=== PATIENT | male | born 2000 | race Caucasian/White ===

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

== ENCOUNTER 2019-06-19 12:06 | Emergency (ER) | payer BC, SELFPAY ==
[2018-11-16 17:16] VITALS: BMI 46.1
[2019-06-19 12:07] VITALS: BP 125/37; PULSE 129; RESP 23; TEMP 37.1; O2SAT 90; BMI 47.3
--- NOTE | 2019-06-19 12:26 | EKG12_ITS ---
Test Reason : Blood Pressure : / mmHG Vent. Rate : 115 BPM Atrial Rate : 115 BPM P-R Int : 140 ms QRS Dur : 092 ms QT Int : 342 ms P-R-T Axes : 036 026 052 degrees QTc Int : 473 ms Sinus tachycardia Otherwise normal ECG Confirmed by REANNA TRINIDAD ([id number]), legal editor AIDEE MARTINEZ ([id number]) on 06/25/2019 8:56:29 AM Referred By: YANET Confirmed By:REANNA TRINIDAD
--- NOTE | 2019-06-19 12:26 | CT_ITS ---
STUDY: CT BRAIN WITHOUT CONTRAST REASON FOR EXAM: Male, 18 years old. Seizure. RADIATION DOSAGE (If Supplied By Facility): CTDIvol = ( 44.99 ) mGy, DLP = ( 812.98 ) mGycm TECHNIQUE: Transaxial CT imaging of the brain was performed without administration of intravenous contrast material. Individualized dose optimization techniques were used for this CT. COMPARISON: No relevant priors. FINDINGS: Normal soft tissue structures. Normal calvarium. Normal size ventricles and extra-axial spaces for the patient's age. Normal white matter tracts of the cerebral hemispheres. Normal basal ganglia and thalami. Normal brainstem. Normal cerebellum. There is no intracranial hemorrhage. There are no findings of an acute ischemic infarction. Normal visualized paranasal sinuses. CT/Brain/Head without Contrast IMPRESSION: Normal unenhanced CT scan of the brain. Electronically Signed: David Henning, at 13:43 EDT , Service support ,
--- NOTE | 2019-06-19 12:28 | ED.VIS.GEN ---
History of Present Illness Chief Complaint: Seizure Informant: Patient Onset: Today Narrative: Patient presents after a witnessed seizure, this was a tonic-clonic seizure, he had a postictal state, apparently went into another seizure after that. He is now seizure-free. He did bite his tongue. He has no recollection. No prior seizure. No chest pain shortness of breath. Past Medical History - Allergies and Home Meds Allergies/Adverse Reactions: Allergies bee venom protein (honey bee) Allergy (Mild, Verified 06/19/19 12:15) Unknown Primary Care Physician: Wilfrid Daniel MD [STAFF PHYSICIAN] - 3-5 Days Past Medical History: None Smoking Status: Former smoker Review of Systems General: Denies: Fever Eyes: Reports: - ENT: Reports: - - Tongue abrasion Cardiovascular: Denies: Chest pain Respiratory: Denies: Dyspnea Gastrointestinal: Denies: Abdominal pain, Nausea Genitourinary: Denies: Dysuria Musculoskeletal: Denies: Myalgias, Back pain Skin: Denies: Rash Neurological: Denies: Headache, Weakness Psych: Denies: Depression Hematologic: Denies: Easy bruising Physical Exam Vital Signs/Narrative: Vital Signs Temp Pulse Resp BP Pulse Ox 06/19/19 12:07 98.7 F 129 H 23 H 125/37 H 90 General: Well nourished, Well developed Eyes: Perrl, EOMI, - - There is some petechiae infraorbital region otherwise eyes are unremarkable ENT: Moist mucous membranes Neck: Supple Cardiovascular: Regular rate, Regular rhythm Respiratory: No distress, CTA bilaterally Abdomen: Soft, Nontender Back: Nontender, Normal Inspection Extremities: Nontender, No edema Neurological: Alert, Oriented x3 Psychological: Normal affect Diagnostic/Tx/Re-eval - Medical Decision Making Patient is found to have a right shoulder dislocation which I reduced. Otherwise he has an unremarkable ED work-up. He does have a tongue abrasion. I discussed with neurology, they recommended antiepileptics. I will follow-up with neurology Procedures Procedure(s): Shoulder reduction. Right shoulder reduction was done by me using a modified Milch technique. Patient tolerated procedure well without any sedation. Post reduction x-ray showed normal alignment. Placed in a sling and slough ED Disposition - Plan for ED Patient: Disposition: Home or Assisted Living Diagnosis: Seizure Instructions: SEIZURE, Recurrent [Adult], SEIZURE, New Onset, Unk Cause [Adult] Prescriptions: Levetiracetam [Keppra] 500 mg PO BID #60 tab Prescription Printed Referrals: Wilfrid Daniel MD [STAFF PHYSICIAN] - 3-5 Days
[2019-06-19 12:34] LABS: Hematocrit 45.7 % (40-54); Hemoglobin 14.5 g/dL (13.0-16.5); Mean Corp Hgb Conc 31.7 g/dL (32-36); Mean Corpuscular Hgb 27.1 pg (27.0-32.0); Mean Corpuscular Volume 85.3 fL (80-94); Mean Platelet Vol. 10.6 fl (6.2-12.0); POSITIVE COUNT YES; POSITIVE DIFFERENTIAL YES; POSITIVE MORPHOLOGY YES; Platelet Count 378 K/mm3 (150-450); RBC Distribution Width CV 13.6 % (11.6-14.6); RBC Distribution Width SD 41.9 fl (35.1-43.9); Red Blood Count 5.36 M/mm3 (4.6-6.2); White Blood Count 13.8 K/mm3 (4.4-11.0)
[2019-06-19 12:36] LABS: Differential Indicated MANUAL DIFF
[2019-06-19] MEDS: 0.9% Normal Saline 1,000 ML 1000 ML IV (12:40)
[2019-06-19 12:41] LABS: Prothrombin Time (Protime)PT. 12.7 SECONDS (11.7-14.9)
[2019-06-19 12:46] VITALS: BP 113/85; PULSE 112; RESP 23; O2SAT 98
[2019-06-19 12:59] LABS: ALB/GLOB Ratio 0.9 RATIO (0.9-2.4); AST(SGOT) 25 U/L (15-37); Alanine Aminotransfer ALT/SGPT 57 U/L (16-61); Albumin, Serum 3.8 g/dL (3.2-5.0); Alkaline Phosphatase 45 U/L (45-117); Anion Gap 11 (5-15); BUN 17 mg/dL (7-18); BUN/Creat Ratio 15.9 RATIO (10-20); Calcium,Total 9.5 mg/dL (8.5-10.1); Chloride 106 mmol/L (98-107); Creatinine, Serum 1.07 mg/dL (0.70-1.30); EST Glomerular Filtration Rate 93 mL/min (>60); Est Glom Filt Rate - Afr Amer 113 mL/min (>60); Estimated Creatinine Clearance 117.29 ml/min; Globulin 4.4 g/dL (2.2-4.2); Glucose 107 mg/dL (74-106); Potassium 4.2 mmol/L (3.5-5.1); Protein, Total 8.2 g/dL (6.4-8.2); Sodium Level 138 mmol/L (136-145)
[2019-06-19 13:04] LABS: Blast 2 % (0-0); Eosinophil 3 % (0-5); Lymphocyte 34 % (19-41); Monocyte 2 % (0-10); Neutrophil-Band 6 % (0-5); Neutrophil-Segmented 53 % (47-70); Platelet Estimate ADEQUATE (ADEQ); Red Cell Morphology NORM C+C NORMAL (NORM C&C); Total Cells Counted 100 (MANUAL DIFF)
[2019-06-19 13:07] LABS: Absolute Lymphocyte Count 4.69 X10^3/uL (0.83-4.51); Absolute Neutrophil Count 8.2 X10^3/uL (2.0-7.7)
[2019-06-19 13:08] LABS: Reactive Lymphocyte 1+
--- NOTE | 2019-06-19 13:15 | RAD_ITS ---
STUDY: X-RAY CHEST REASON FOR EXAM: Male, 18 years old. Seizure activity. TECHNIQUE: Single AP portable view of the chest. COMPARISON: None. FINDINGS: EKG electrodes are seen. The lungs are clear and expanded. There is no demonstrated pleural abnormality. Normal size heart. Normal mediastinum and julian. Normal visualized pulmonary arteries. Normal visualized aortic arch and descending thoracic aorta. Normal visualized thoracic spine. Normal visualized ribs, clavicles, and shoulders. There is no demonstrated abnormality of the visualized soft tissue structures of the upper abdomen. RAD/Chest 1 View (Portable) IMPRESSION: Normal x-ray examination of the chest. Electronically Signed: David Henning, at 14:00 EDT , Service support ,
--- NOTE | 2019-06-19 13:40 | RAD_ITS ---
STUDY: X-RAY - RIGHT HUMERUS REASON FOR EXAM: Male, 18 years old. History of fall due to a seizure. Mid right humeral pain. TECHNIQUE: 2 view(s) of the humerus. COMPARISON: None. FINDINGS: Anterior inferior subluxation of the glenohumeral joint. There is no demonstrated fracture or osseous destructive process. There is no demonstrated soft tissue abnormality. RAD/Humerus min 2 Views IMPRESSION: Anterior inferior subluxation of the glenohumeral joint. Electronically Signed: David Henning, at 14:04 EDT , Service support ,
--- NOTE | 2019-06-19 13:40 | ED.RN ---
SEPSIS SCREEN NOT NEEDED PER DR HOLT.
[2019-06-19 13:53] VITALS: BP 144/83; PULSE 89; RESP 17; O2SAT 100
[2019-06-19] MEDS: Morphine 2 MG/ML Syringe IV (14:09)
--- NOTE | 2019-06-19 14:42 | RAD_ITS ---
STUDY: X-RAY - RIGHT SHOULDER REASON FOR EXAM: Male, 18 years old. Post reduction examination. TECHNIQUE: 2 view(s) of the shoulder. COMPARISON: Comparison is made with prior study done earlier in the day. FINDINGS: Normal glenohumeral articulation. Normal acromioclavicular joint. Normal acromion. Normal humeral head and visualized proximal humerus. The soft tissue structures are unremarkable. Normal visualized pulmonary apex. RAD/Shoulder min 2 Views IMPRESSION: Normal x-ray examination of the shoulder. Electronically Signed: David Henning, at 15:25 EDT , Service support ,
[2019-06-19 15:09] VITALS: BP 123/79; PULSE 128; RESP 16; O2SAT 97
[2019-06-19] MEDS: levETIRAcetam 500 MG Tablet PO (16:14)
[2019-06-19 16:16] VITALS: BP 128/79; PULSE 110; RESP 12; O2SAT 98
--- NOTE | 2019-06-19 16:17 | ED.RN ---
PT GIVEN WRITTEN AND VERBAL D/C INSTRUCTIONS AND HOME GOING PRESCRIPTIONS. PT EDUCATED ON SEIZURES AND THAT HE IS NOT TO DRIVE UNTIL FOLLOW UP WITH NEUROLOGY. PT VERBALIZES UNDERSTANDING AND DENIES ANY FURTHER QUESTIONS. IV D/C AND COVERED WITH 2X2 GAUZE AND PAPER TAPE. PT REPORTS HIS GRANDPARENTS ARE GOING TO PICK HIM UP. PT ASSISTED TO WAITING ROOM BY THIS RN.
[2019-06-20 12:21] LABS: Pathologist Review Reviewed
== END 2019-06-19 16:18 | disposition home or self-care (01) ==
PROVIDERS: Emergency Provider Emergency Medicine; Family Provider Family Medicine; PCP Family Medicine
DX: G40.409 Other generalized epilepsy and epileptic syndromes, not intractable, without status epilepticus (principal); S43.004A Unspecified dislocation of right shoulder joint, initial encounter; Z87.891 Personal history of nicotine dependence; X58.XXXA Exposure to other specified factors, initial encounter; Y93.9 Activity, unspecified; Y92.89 Other specified places as the place of occurrence of the external cause; Y99.8 Other external cause status
CPT/HCPCS: 23650; 70450; 71045; 73030; 73060; 80053; 85025; 85610; 93005; 96361; 96374; 99285; J7030; A4216

== ENCOUNTER 2021-08-06 21:35 | Emergency (ER) | payer BC, SELFPAY ==
[2021-08-06 21:36] VITALS: BP 145/85; PULSE 119; RESP 18; TEMP 36.6; O2SAT 94; BMI 52.2
== END 2021-08-06 22:15 | disposition left against medical advice (07) ==
LOC: ED 22:46
PROVIDERS: PCP Family Medicine
DX: R10.9 Unspecified abdominal pain (principal); Z53.21 Procedure and treatment not carried out due to patient leaving prior to being seen by health care provider

== ENCOUNTER 2021-08-08 20:05 | Emergency (ER) | payer SELFPAY ==
[2021-08-08 20:06] VITALS: BP 163/106; PULSE 117; RESP 16; TEMP 36; O2SAT 95; BMI 54.2
[2021-08-08 20:08] VITALS: BP 163/106; PULSE 117; RESP 16; TEMP 36; O2SAT 95
--- NOTE | 2021-08-08 20:25 | CT_ITS ---
INDICATION: abdominal pain -- IV PO Contrast EXAMINATION: CT ABDOMEN AND PELVIS WITH CONTRAST - CT Abdomen And Pelvis W/ Contrast Injection TECHNIQUE: Helically acquired images were obtained of the abdomen and pelvis following IV contrast. A radiation dose optimization technique was used for this scan. IV Contrast dosage and agent: 100 cc of ISOVUE-300 Oral contrast: GASTROGRAFIN. COMPARISON: None. FINDINGS: LOWER CHEST: Lung bases are clear. No cardiomegaly or pericardial effusion. LIVER: Diffusely decreased density suggesting hepatic steatosis. No focal mass. GALLBLADDER AND BILIARY TREE: No calcified gallstones. No gallbladder distension or wall edema. No intra- or extrahepatic biliary ductal dilation. PANCREAS: No focal cystic or solid mass. SPLEEN: Normal size without focal cystic or solid mass. ADRENAL GLANDS: No nodules. KIDNEYS AND URETERS: Normal renal size and position. No hydronephrosis. PERITONEUM: No ascites or free air. No other fluid collection. BOWEL: Appendix is not visualized however there are no focal inflammatory changes. No stomach or bowel distension. LYMPH NODES: Multiple mildly prominent mesenteric lymph nodes measuring between 4 and 8 mm in short axis diameter. No clumping of lymph nodes. VESSELS: Aorta is non-dilated. URINARY BLADDER: Unremarkable. REPRODUCTIVE ORGANS: No pelvic masses. ABDOMINAL WALL: Small fat filled left inguinal hernia. BONES: No lytic or blastic abnormality. CT/Abdomen/Pelvis WITH Contrast IMPRESSION: Multiple mildly prominent mesenteric lymph nodes may represent mesenteric adenitis. No evidence of terminal ileitis. Likely hepatic steatosis. Steatohepatitis could have a similar appearance. Electronically Signed: Santana Machado DO at 23:00 EST Tel , Service support ,
--- NOTE | 2021-08-08 20:26 | EDS_ITS ---
HPI HPI - GI History of Present Illness Chief Complaint: Abd Pain Detail of Chief Complaint: Abdominal pain is started 2 days ago Informant: patient Abdominal Pain/Flank Pain Current Severity: 5/10 Maximum Severity: 8/10 Worsened by: Movement Nausea/Vomiting/Emesis GI Symptom: Positive for Nausea and - (Diarrhea) Narrative Narrative: Patient presents with abdominal pain that started 2 days ago. Patient states that he has had diarrhea for about 4 days and having multiple frequent watery stools at times with some blood in it. No family history of inflammatory bowel disease. Patient complains of pain to the right lower quadrant that is worse with movement and cough. Patient last ate about an hour ago. Somewhat decreased appetite but is still making himself eat. Denies urinary symptoms. Patient also has had a cough for several weeks and had a negative Covid test 3 days ago. Denies any sick contacts. Prior similar symptoms: No PFSH PFSH Medical History (Updated 08/08/21 @ 23:[address] Bulmaro Goodwin, DO) Chest pain Diarrhea Difficulty balancing Fatigue Knee pain Limb weakness neck/back pain Seasonal allergies Severe headache Shortness of breath Shoulder pain sudden weight loss Home Medications diphenoxylate-atropine [Lomotil] 2 tab PO Q8H PRN #20 tab 08/08/21 [Rx Last Ta angelic Unknown] Allergy/AdvReac Type Severity Reaction Status Date / Time bee venom protein (honey bee) Allergy Mild Unknown Verified 08/08/21 20:09 Surgical History (Updated 08/08/21 @ 20:24 by Yamile Portillo) History of tonsillectomy and adenoidectomy Social History (Updated 11/17/18 @ 14:55 by Danny CONSTANTINO, DOUGIE) Smoking Status: Former smoker alcohol intake: never ROS ROS ED Constitutional Constitutional ED: Reports systems reviewed and no addt'l complaints, except as documented; Denies body ache(s), change in weight or chills Eyes Eyes: Denies acute decrease in peripheral vision, change in vision, double vision or loss of vision ENT ENT ED: Reports none; Denies ear pain, lip swelling, loss taste/smell, neck pain, otalgia or sore throat Cardiovascular Cardiovascular: Reports none; Denies abdominal pain, chest pain with activity, leg edema, lightheadedness, palpitations, rapid heart rate or syncope Respiratory/Chest Respiratory/Chest: Reports none and cough; Denies change in mental status, dry cough, dyspnea, hemoptysis, shortness of breath at rest or shortness of breath with exertion Gastrointestinal Gastrointestinal: Reports none, abdominal pain, diarrhea and nausea; Denies change in stool character, hematemesis, hematochezia, melena, rectal bleeding or vomiting Genitourinary Genitourinary ED: Reports none; Denies abdominal discomfort, anuria, dysuria, genital pain or polyuria Musculoskeletal Musculoskeletal: Reports none; Denies arthralgias, back pain, difficulty walking, extremity pain, muscle weakness or myalgias Integumentary Reports none; Denies abscess or rash Neurologic Neurologic: Reports none; Denies abnormal gait, confusion, focal weakness, frequent falls, headache(s), loss of vision, numbness, paresthesias, radicular pain, vertigo or weakness Psychiatric Psychiatric: Reports systems reviewed and no addt'l complaints, except as documented and none; Denies behavioral changes, confusion, difficulty c oncentrating, hallucinations, suicidal ideation, tactile hallucinations or visual hallucinations Endocrine Endocrinology: Denies none, cold intolerance, excessive sweating, fatigue or heat intolerance Hematologic/Lymphatic Hematologic/Lymphatic: Reports none; Denies anemia, easy bleeding or easy bruising Allergic/Immunologic Allergic/Immunologic ED: Denies as per HPI, none, lip swelling, mouth swelling, throat swelling, tongue swelling or hives EXAM Physical Exam Const Vital Signs: 08/08/21 20:06 08/08/21 20:08 08/08/21 22:37 Temperature 96.8 F L 96.8 F L Temperature Source Temporal Temporal Pulse Rate 117 H 117 H 94 Respiratory Rate 16 16 20 H Blood Pressure 163/106 H 163/106 H 117/70 Blood Pressure Mean 125 125 85 Pulse Ox 95 95 95 Oxygen Delivery Method Room Air Room Air Room Air Positive well nourished and well developed General Appearance ED: well developed and NAD HEENT Reports TM's clear and moist mucous membranes normocephalic and atraumatic; Negative for trauma or tenderness Tympanic Membrane ED: Yes TM's clear Eyes PERRL and EOMs intact bilaterally General Eye ED: Negative for pale conjunctiva or scleral icterus Neck no lymphadenopathy, supple and no JVD General: Negative for tenderness Chest Wall inspection of chest normal and palpation of chest normal Chest: Negative for tenderness Resp normal respiratory effort and clear to auscultation bilaterally Effort and Inspection: Negative for respiratory distress or pain with movement Auscultation: Negative for rhonchi, wheezes or diminished lung sounds Cardio regular rate, regular rhythm, S1 normal heart sound, S2 normal heart sound and no murmurs Peripheral Pulses: pulses 2+ throughout GI normal to inspection, nondistended, normoactive bowel sounds, soft to palpation, non-distended and no masses GI Narrative: Patient morbidly obese. Patient has tenderness palpation over right lower quadrant with some guarding. There is no rebound, rigidity, or frail signs. Back/Spine no CVA tenderness and no thoracic nor lumbar tenderness Extremity normal to inspection General Extremety ED: Negative for edema General Extremity: Negative for edema Neuro oriented x3, CN's II-XII intact bilaterally, no sensory deficits noted and gait normal Sensorium / Orientation: awake, alert, oriented to person, oriented to place and oriented to time Motor Exam: strength 5/5 throughout and strength abnormal Psych mental status grossly normal Skin no rashes or lesions noted and no wounds MDM MDM MDM Narrative Medical decision making narrative: IV line tablets on arrival. Patient's work- up unremarkable. He did have slight elevation in his LFTs which I suspect may be transient from viral etiology. Patient has had 4 watery stools while in the department. I suspect he likely has a viral enteritis. I did send off stool for enteric pathogens and C. difficile. Patient received Lomotil p.o. He will be given a prescription for Lomotil. CT scan was unable to visualize the appendix but there were no inflammatory changes to indicate appendicitis and given his presentation I feel this is an unlikely diagnosis. Lab Data Attestation: I reviewed the patient's lab results. Labs: Laboratory Results - last 24 hr 08/08/21 08/08/21 08/08/21 20:20 20:27 20:27 WBC 7.3 RBC 5.08 Hgb 13.6 Hct 41.8 MCV 82.3 MCH 26.8 L MCHC 32.5 RDW Std Deviation 40.4 RDW Coeff of Felix 13.4 Plt Count 275 MPV 10.7 Immature Gran % (Auto) 0.300 Neut % (Auto) 56.2 Lymph % (Auto) 31.4 Stanton % (Auto) 9.7 Eos % (Auto) 2.3 Baso % (Auto) 0.1 Absolute Neuts (auto) 4.1 Absolute Lymphs (auto) 2.29 Nucleated RBC % 0 Sodium 142 Potassium 3.5 Chloride 108 H Carbon Dioxide 28.0 Anion Gap 6 BUN 12 Creatinine 1.09 Estim Creat Clear Calc 113.22 Est GFR (MDRD) Af Amer 108 Est GFR (MDRD) Non-Af 89 BUN/Creatinine Ratio 11.0 Glucose 86 Calcium 8.9 Total Bilirubin 0.60 AST 84 H ALT 149 H Alkaline Phosphatase 54 Total Protein 7.8 Albumin 3.5 Globulin 4.3 H Albumin/Globulin Ratio 0.8 L Urine Color Yellow Urine Clarity Clear Urine pH 6.0 Ur Specific Dayhoit 1.025 Urine Protein 30 H Urine Glucose (UA) Normal Urine Ketones 5 H Urine Occult Blood Negative Urine Nitrite Negative Urine Bilirubin Negative Urine Urobilinogen Normal Ur Leukocyte Esterase Negative Urine RBC 0 SEEN Urine WBC 0-5 SEEN Ur Squamous Epith Cells 0 SEEN Urine Bacteria 0 SEEN Hyaline Casts 0-5 SEEN Urine Mucus 1+ COVID-19 (FAR[facility]) 08/08/21 20:30 WBC RBC Hgb Hct MCV MCH MCHC RDW Std Deviation RDW Coeff of Felix Plt Count MPV Immature Gran % (Auto) Neut % (Auto) Lymph % (Auto) Stanton % (Auto) Eos % (Auto) Baso % (Auto) Absolute Neuts (auto) Absolute Lymphs (auto) Nucleated RBC % Sodium Potassium Chloride Carbon Dioxide Anion Gap BUN Creatinine Estim Creat Clear Calc Est GFR (MDRD) Af Amer Est GFR (MDRD) Non-Af BUN/Creatinine Ratio Glucose Calcium Total Bilirubin AST ALT Alkaline Phosphatase Total Protein Albumin Globulin Albumin/Globulin Ratio Urine Color Urine Clarity Urine pH Ur Specific Dayhoit Urine Protein Urine Glucose (UA) Urine Ketones Urine Occult Blood Urine Nitrite Urine Bilirubin Urine Urobilinogen Ur Leukocyte Esterase Urine RBC Urine WBC Ur Squamous Epith Cells Urine Bacteria Hyaline Casts Urine Mucus COVID-19 ([facility]) Not Detected Radiography Diagnostic Testing: Clinical Impression(s) from Imaging Studies Abdomen/Pelvis CT 08/08/21 20:25 IMPRESSION: Multiple mildly prominent mesenteric lymph nodes may represent mesenteric adenitis. No evidence of terminal ileitis. Likely hepatic steatosis. Steatohepatitis could have a similar appearance. Electronically Signed: Santana Machado DO at 23:00 EST Tel , Service support , Discharge Plan Triage Chief Complaint: Abd Pain ED Provider: Bulmaro Goodwin Dx/Rx/DC Orders Clinical Impression: Viral enteritis, Abdominal pain Instructions: ED Diarrhea, Viral (Adult), ED Abdominal Pain Unkn Cause Male... Prescriptions: New diphenoxylate-atropine [Lomotil] 2.5-0.025 mg tablet 2 tab PO Q8H PRN (Reason: diarrhea) Qty: 20 RF: 0 Primary Care Provider: Maricarmen Fields Referrals: Maricarmen Fields MD [Primary Care Provider] - 3-5 Days Disposition Disposition: Home, Self Care
[2021-08-08 20:32] LABS: Bacteria 0 SEEN /hpf (None Seen); Red Blood Cells-Urine 0 SEEN /hpf (0-5); Squamous Epithelial Cells - UA 0 SEEN /hpf (0-5)
[2021-08-08 20:39] LABS: Color, Urine Yellow (Yellow); Glucose, Dipstick Normal (Normal); Ketone-Dipstick 5 mg/dl (Negative); Leukocyte Esterase-Dipstick Negative /ul (Negative); Nitrite-Dipstick Negative (Negative); Occult Blood-Urine Negative /ul (Negative); Protein-Dipstick 30 mg/dl (Negative); Specific Gravity, Urine 1.025 (1.002-1.030); Urine Bilirubin Dipstick Negative (Negative); Urine Clarity Clear (Clear); Urine Urobilinogen Normal (Normal)
[2021-08-08 20:39] LABS: Absolute Lymphocyte Count 2.29 X10^3/uL (0.83-4.51); Absolute Neutrophil Count 4.1 X10^3/uL (2.0-7.7); Basophil# 0.01 X10^3/uL; Basophil% 0.1 % (0-1); Eosinophil# 0.17 X10^3/uL; Eosinophils% 2.3 % (0-5); Hematocrit 41.8 % (40-54); Hemoglobin 13.6 g/dL (13.0-16.5); Lymphocyte # 2.29 X10^3/ul (0.83-4.51); Lymphocyte % 31.4 % (19-41); Mean Corp Hgb Conc 32.5 g/dL (32-36); Mean Corpuscular Hgb 26.8 pg (27.0-32.0); Mean Corpuscular Volume 82.3 fL (80-94); Mean Platelet Vol. 10.7 fl (6.2-12.0); Monocyte# 0.71 X10^3/uL; Monocyte% 9.7 % (0-10); NRBC Flagged by Analyzer 0 % (0-5); Neutrophil # 4.09 X10^3/uL (2.7-7.7); Neutrophil % 56.2 % (47-70); Platelet Count 275 K/mm3 (150-450); RBC Distribution Width CV 13.4 % (11.6-14.6); RBC Distribution Width SD 40.4 fl (35.1-43.9); Red Blood Count 5.08 M/mm3 (4.6-6.2); White Blood Count 7.3 K/mm3 (4.4-11.0)
[2021-08-08 20:55] LABS: ALB/GLOB Ratio 0.8 RATIO (0.9-2.4); AST(SGOT) 84 U/L (15-37); Alanine Aminotransfer ALT/SGPT 149 U/L (16-61); Albumin, Serum 3.5 g/dL (3.2-5.0); Alkaline Phosphatase 54 U/L (45-117); Anion Gap 6 (5-15); BUN 12 mg/dL (7-18); Calcium,Total 8.9 mg/dL (8.5-10.1); Chloride 108 mmol/L (98-107); Creatinine, Serum 1.09 mg/dL (0.70-1.30); EST Glomerular Filtration Rate 89 mL/min (>60); Est Glom Filt Rate - Afr Amer 108 mL/min (>60); Estimated Creatinine Clearance 113.22 ml/min; Globulin 4.3 g/dL (2.2-4.2); Glucose 86 mg/dL (74-106); Potassium 3.5 mmol/L (3.5-5.1); Protein, Total 7.8 g/dL (6.4-8.2); Sodium Level 142 mmol/L (136-145)
[2021-08-08 21:00] LABS: Hyaline Cast 0-5 SEEN /lpf (0-5)
[2021-08-08 21:01] LABS: Mucous, Urine 1+ /hpf (<or=2+); White Blood Cells 0-5 SEEN /hpf (0-5)
[2021-08-08] MEDS: 0.9% Normal Saline 1,000 ML 125 ML IV (21:12)
[2021-08-08 22:37] VITALS: BP 117/70; PULSE 94; RESP 20; O2SAT 95
[2021-08-08] MEDS: Diphenoxylate/Atrop 1 Tablet 2 TABLET PO (23:17)
[2021-08-08 23:20] VITALS: BP 118/72; PULSE 80; RESP 16; O2SAT 96
== END 2021-08-08 23:21 | disposition home or self-care (01) ==
PROVIDERS: Emergency Provider Emergency Medicine; PCP Family Medicine
DX: A08.4 Viral intestinal infection, unspecified (principal); R10.31 Right lower quadrant pain; Z20.822 Contact with and (suspected) exposure to COVID-19; R05.9 Cough, unspecified; Z87.891 Personal history of nicotine dependence
CPT/HCPCS: 74177; 80053; 81001; 85025; 87493; 87506; 87635; 96360; 96361; 99283; J7030; Q9967; U0005; A4216; U0003

== ENCOUNTER 2021-12-03 10:00 | Outpatient (RCR) | payer BC, SELFPAY ==
--- NOTE | 2021-11-13 10:00 | HP.PTEVAL_ITS ---
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 Date of Evaluation: 11/13/21 Physical Therapist: Tevin Lal, PT, Cert MDT, OCS - Visit Plan Frequency: 2x /Week Duration: 4 Weeks Plan: PT INTERVETIONS GRADED PRES 'S QUADS/VMO/HAMS/HIP ,CLOSE CHAIN TO MININMIZE PATELLA FEMORAL FORCE ,,FLEXABLITY ,FUNCTIONAL STRENGTHENING AND MODALTIES PRN - Subjective This 20 y/o male presents to physical therapy bilateral knee pain from patella syndrome with mal-tracking and of instability.Patient has had pain since HS worse george. Pain had last subluxation 3weeks ago left side ,but has more pain right. Patient seen DR recommended PT and braces and melicam . Aggravating factors bending walking ,extended sitting, running kneeling ,unable squat and stairs painful. Alleviating factors melicam. Denies paresthesia/tingling. Patient has clicking popping. knees. Patient pain affects QOL and function included job demands. Patient had x-rays malignment patella. SOCAIL: single. VOACTION: POWER SYSTEM ENGINEER - Pain Right Knee Pain Intensity (Out of 10): 7 Pain Intensity Range: 10 Left Knee Pain Intensity (Out of 10): 7 Pain Intensity Range: 10 - Objective POSTURE: patella tilting lateral ,knee genu recurvatum ,patella Larissa. GAIT: ambulated with ER legs. NEURO: INTACT, denies paresthesia/tingling. AROM: Right 0-125 degrees ,left 0-125 degrees. FLEXABLITY: hamstrings min mod tight tight, quads mod tight. MMT: (peak force) quads 47,hamstrings 52,hip flexion 45, abd 40. STAIRS: one step at time - Special Tests R Knee Aan - Meniscus: Positive R Knee Yahir - ACL: Negative R Knee Valgus - MCL: Negative R Knee Varus - LCL: Negative R Knee Patellar Apprehension - PFS: Positive R Knee Patellar Grind - PFS: Positive L Knee Ana - Meniscus: Positive L Knee Apley - Meniscus: Negative L Knee Yahir - ACL: Negative L Knee Valgus - MCL: Negative L Knee Varus - LCL: Negative L Knee Patellar Apprehension - PFS: Positive L Knee Patellar Grind - PFS: Positive - Balance/Special Test Scores Lower Extremity Functional Score: 28 - Goals Goal 1:: I with HEP for knees Goal Time Frame: 4-6 Weeks Goal 2:: Patient to demonstrate 50% improvement with improved function with decrease pain. Goal Time Frame: 12-16 Weeks Goal 3:: Patient to normalize gait with less pain 80% of the time Goal Time Frame: 4-6 Weeks Goal 4:: Patient to be able to do stairs modified squatting and improve ADLS and job demands Goal Time Frame: 4-6 Weeks Goal 5:: Patient improve LFES score by 5-10points to improve QOL and function Goal Time Frame: 4-6 Weeks - Rehabilitation Potential Physical Therapy Diagnosis: This patient has bilateral knee patella femoral dys function with patella lateral tracking with pain during all function activities with causing subluxing knee thus will need Rehabilitation Potential: Good - Anticipated Interventions Patient/Client Instruction: Educate patient on: Condition, Plan of Care For the Purpose of:: To decrease pain, To increase ROM, To improve muscle performance and motor function, To improve ability to perform ADL's, To increase tolerance to activity/condition/position, To improve ability of physical actions for home/community/work/leisure, To improve health of tissue, To decrease soft tissue restriction, To increase flexibility/ROM, To reduce risk of recurrence, To prevent re-injury Therapeutic Exercise to Include: Strength training, Power training, Balance training, Flexibilty training, Active ROM Comment: QUADS/HAMS/HIP For the Purpose of:: To decrease pain, To decrease swelling/inflammation, To increase ROM, To improve muscle performance and motor function, To improve ability to perform ADL's, To improve ability of physical actions for arline e/community/work/leisure, To improve health of tissue, To decrease soft tissue restriction, To increase flexibility/ROM, To reduce risk of recurrence TENS: Yes IF ES: Yes Thermo therapy (hot pack): Yes Ultrasound (thermal/non thermal): Yes For the Purpose of:: To decrease pain, To decrease swelling/inflammation, To increase ROM, To improve nutrient delivery to tissue, To increase oxygenation perfusion Thank you for the opportunity to evaluate your patient. For Medicare and Medicare HMO plans, please review the plan of care and approve it. It will need to be FAXED BACK to us at [phone] for Medicare purposes. For Medicare only, by signing this I certify the plan of care. Please let me know if there are questions or concerns regarding this plan of care. Physician Signature: Date:__
--- NOTE | 2022-04-28 12:05 | HP.PTDCNRP_ITS ---
KEERTHI CHAMPION was seen in my office for initial evaluation on 11/13/21. The following Plan of Care was established for this patient: Initial Frequency: 2x /Week Initial Duration: 4 Weeks Patient/Client Instruction: Educate patient on: Condition, Plan of Care For the Purpose of:: To decrease pain, To increase ROM, To improve muscle performance and motor function, To improve ability to perform ADL's, To increase tolerance to activity/condition/position, To improve ability of physical actions for home/community/work/leisure, To improve health of tissue, To decrease soft tissue restriction, To increase flexibility/ROM, To reduce risk of recurrence, To prevent re-injury Therapeutic Exercise to Include: Strength training, Power training, Balance training, Flexibilty training, Active ROM For the Purpose of:: To decrease pain, To decrease swelling/inflammation, To increase ROM, To improve muscle performance and motor function, To improve ability to perform ADL's, To improve ability of physical actions for home/community/work/leisure, To improve health of tissue, To decrease soft tissue restriction, To increase flexibility/ROM, To reduce risk of recurrence TENS: Yes IF ES: Yes Thermo therapy (hot pack): Yes Ultrasound (thermal/non thermal): Yes For the Purpose of:: To decrease pain, To decrease swelling/inflammation, To increase ROM, To improve nutrient delivery to tissue, To increase oxygenation perfusion This patient was last seen in our office . Pertinent comments regarding their P hysical therapy will appear below: Patient seen for bilateral knee pain for HEP for strengthening thus is d/c At this point I will be discontinuing this patient from physical therapy. I would be happy to see this patient again in the future if found appropriate by the physician. Thank you! Tevin Lal, PT, Cert MDT, OCS Balance/Gait/Functional tests - Balance/Special Test Scores Lower Extremity Functional Score: 59
== END 2021-12-03 19:00 | disposition home or self-care (01) ==
LOC: PT 10:00
PROVIDERS: PCP Family Medicine; Referring Provider Physician Assistant; Visit Provider Physician Assistant
DX: M22.2X1 Patellofemoral disorders, right knee (principal); M22.2X2 Patellofemoral disorders, left knee
CPT/HCPCS: 97110; 97161

== ENCOUNTER 2025-06-19 23:11 | Emergency (ER) | payer MEDICAID, SELFPAY ==
[2025-06-19 23:12] VITALS: BP 147/97; PULSE 101; RESP 20; TEMP 37.1; O2SAT 100; BMI 56.2
[2025-06-20] VITALS: BP 140/98; PULSE 102; RESP 18; O2SAT 96
[2025-06-20] MEDS: 0.9% Normal Saline (1000mL) 1,000 ML 1000 ML IV (00:04)
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
[2025-06-20 00:40] LABS: AST(SGOT) 52 U/L (<=37); Alanine Aminotransfer ALT/SGPT 122 U/L (<=46); Albumin, Serum 4.0 g/dL (3.5-5.0); Alkaline Phosphatase 70 U/L (40-129); Anion Gap 8 (5-15); BUN 13 mg/dL (4-19); BUN/Creat Ratio 14.8 RATIO (10-20); Calcium,Total 8.8 mg/dL (7.6-11.0); Carbon Dioxide 24.2 mmol/L (21.0-32.0); Chloride 106 mmol/L (98-108); Estimated Creatinine Clearance 214.42 ml/min (50-250); Globulin 2.7 g/dL (2.2-4.2); Glucose 182 mg/dL (70-99); Hematocrit 39.3 % (40-54); Hemoglobin 12.6 g/dL (13.0-16.5); Immature Granulocytes Count 0.040 X10^3/uL (0.0-0.0); Mean Corp Hgb Conc 32.1 g/dL (32-36); Mean Corpuscular Volume 85.2 fL (80-94); Mean Platelet Vol. 11.6 fl (6.2-12.0); NRBC Flagged by Analyzer 0 % (0-5); Platelet Count 230 K/mm3 (150-450); Potassium 4.3 mmol/L (3.3-5.1); RBC Distribution Width CV 13.3 % (11.6-14.6); RBC Distribution Width SD 41.2 fl (35.1-43.9); Red Blood Count 4.61 M/mm3 (4.6-6.2); White Blood Count 6.3 K/mm3 (4.4-11.0)
[2025-06-20 01:00] VITALS: BP 129/60; PULSE 77; RESP 18; O2SAT 97
[2025-06-20 01:31] VITALS: BP 120/61; PULSE 83; RESP 18; TEMP 36.6; O2SAT 97
[2025-06-20 02:00] VITALS: BP 119/75; PULSE 72; RESP 18; O2SAT 97
--- NOTE | 2025-06-20 23:58 | CT_ITS ---
PROCEDURE: CT/Brain/Head without Contrast
== END 2025-06-20 02:24 | disposition home or self-care (01) ==
PROVIDERS: Emergency Provider Emergency Medicine; PCP Specialist; Visit Provider Emergency Medicine
DX: R45.4 Irritability and anger (principal); R51.9 Headache, unspecified; R73.9 Hyperglycemia, unspecified; F17.210 Nicotine dependence, cigarettes, uncomplicated
CPT/HCPCS: 70450; 80053; 84443; 85025; 96361; 96374; 99284; A4216